=== PATIENT | female | born 1975 | race Two or more races ===

== ENCOUNTER 2020-07-03 11:25 | Outpatient (REF) | payer OTHER, SELFPAY ==
[2020-07-03 14:47] LABS: Free T4 (Free Thyroxine) 0.84 ng/dL (0.71-1.85); Thyroid Stimulating Hormone 0.04 uIU/mL (0.32-4.0); Vitamin D 25-OH Total 30.2 ng/mL (>30)
[2020-07-04 11:41] LABS: Triiodothyronine T3 Free 2.5 pg/mL (2.3-4.2)
== END 2020-07-03 11:26 | disposition home or self-care (01) ==
LOC: HO.HMGCLDS 11:25
PROVIDERS: PCP Internal Medicine; Visit Provider Internal Medicine
DX: E05.90 Thyrotoxicosis, unspecified without thyrotoxic crisis or storm (principal); E55.9 Vitamin D deficiency, unspecified
CPT/HCPCS: 82306; 84439; 84443; 84481

== ENCOUNTER → 2020-07-16 12:12 | Outpatient (BNVA) | payer OTHER, SELFPAY | PROVIDERS: PCP Internal Medicine; Referring Provider Internal Medicine; Visit Provider Internal Medicine | DX: Z76.89 Persons encountering health services in other specified circumstances (principal) ==

== ENCOUNTER → 2020-12-09 07:25 | Outpatient (BNVA) | payer OTHER, SELFPAY | PROVIDERS: PCP Internal Medicine; Visit Provider Internal Medicine ==

== ENCOUNTER 2020-12-23 08:04 | Outpatient (REF) | payer OTHER, SELFPAY ==
--- NOTE | ~2020-12-23 | US_ITS ---
EXAMINATION: US THYROID CLINICAL INFORMATION: Thyrotoxicosis with diffuse goiter without thyrotoxic crisis or storm. COMPARISON: None TECHNIQUE: Linear transducer grayscale and color Doppler examination with attention to the region of the thyroid. FINDINGS: SIZE: Measurements of the thyroid lobes and nodules are given in sagittal, anteroposterior and transverse dimensions respectively. Right Thyroid Lobe: 6.7 x 2.8 x 3.1 cm, volume 30.5 mL. Parenchyma: The gland echotexture is slightly heterogeneous. Thyroid vascularity is increased. Left Thyroid Lobe: 6.6 x 2 x 2.8 cm, volume 19.1 mL. Parenchyma: The gland echotexture is slightly heterogeneous. Thyroid vascularity is increased. Isthmus: 1.0 cm in maximum AP dimension. Estimated total number of nodules greater than or equal to 1 cm: 0. 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 Location: Right mid/inferior. Size: 0.4 x 0.2 x 0.3 cm, volume 0.01 mL. Nodule characteristics: Composition: Cystic(0). ACR TI-RADS total points: 0 ACR TI-RADS category: 1 NODES: No lymphadenopathy is seen in the tissue surrounding the thyroid gland. US/US thyroid IMPRESSION: Enlarged slightly heterogeneous hypervascular thyroid gland. Small solitary cystic right nodule. ACR TI-RADS RECOMMENDATION REFERENCE: Ultrasound-guided fine-needle aspiration, followup ultrasound, no further follow up. * TR1 (0 point) and TR 2 (2 points): No FNA or follow up * TR3 (3 points): FNA if more than or equal to 2.5 cm in maximum dimension, followup ultrasound in 1, 3 and 5 years if 1.5 to 2.4 cm in maximum dimension. * TR4 (4-6 points): FNA if more than or equal to 1.5 cm in maximum dimension, followup ultrasound in 1, 2, 3 and 5 years if 1 to 1.4 cm in maximum dimension. * TR5 (more than or equal to 7 points): FNA if more than or equal to 1 cm in maximum dimension, followup ultrasound every year for 5 years if 0.5 to 0.9 cm in maximum dimension. * TR3, TR4 or TR5 nodules that are below the size threshold for follow up receive no follow up.
[2020-12-23 11:08] LABS: Free T4 (Free Thyroxine) 0.94 ng/dL (0.71-1.85); Thyroid Stimulating Hormone 0.68 uIU/mL (0.32-4.0)
[2020-12-24 08:16] LABS: Triiodothyronine T3 Total 95 ng/dL (76-181)
[2020-12-24 09:07] LABS: Thyroglobulin Antibodies <1 IU/mL (< or = 1); Thyroid Peroxidase Antibodies 8 IU/mL (<9)
[2020-12-28 08:21] LABS: Thyrotropin Receptor Antibody 3.03 IU/L (<=2.00)
[2020-12-28 16:51] LABS: Thyroid Stimulating Immunoglob 319 % baseline (<140)
== END 2020-12-23 08:05 | disposition home or self-care (01) ==
LOC: HO.US 08:04
PROVIDERS: PCP Internal Medicine; Visit Provider Internal Medicine
DX: E05.00 Thyrotoxicosis with diffuse goiter without thyrotoxic crisis or storm (principal)
CPT/HCPCS: 36415; 76536; 83520; 84439; 84443; 84445; 84480; 86376; 86800

== ENCOUNTER → 2021-01-27 08:27 | Outpatient (BNVA) | payer OTHER, SELFPAY | PROVIDERS: PCP Internal Medicine; Visit Provider Internal Medicine ==

== ENCOUNTER 2021-02-10 07:20 | Outpatient (REF) | payer OTHER, SELFPAY ==
[2021-02-10 14:32] LABS: Free T4 (Free Thyroxine) 1.06 ng/dL (0.71-1.85); Vitamin D 25-OH Total 21.4 ng/mL (>30)
[2021-02-11 12:52] LABS: Triiodothyronine T3 Total 107 ng/dL (76-181)
== END 2021-02-10 07:21 | disposition home or self-care (01) ==
LOC: HO.LAB 07:20
PROVIDERS: PCP Internal Medicine; Visit Provider Internal Medicine
DX: E05.00 Thyrotoxicosis with diffuse goiter without thyrotoxic crisis or storm (principal); E55.9 Vitamin D deficiency, unspecified; E04.1 Nontoxic single thyroid nodule; H05.20 Unspecified exophthalmos; Z79.899 Other long term (current) drug therapy
CPT/HCPCS: 36415; 82306; 84439; 84443; 84480

== ENCOUNTER → 2021-04-07 09:58 | Outpatient (REF) | payer OTHER, SELFPAY ==
--- NOTE | ~2021-04-07 | NM_ITS ---
EXAMINATION: NM THYROID UPTAKE AND SCAN CLINICAL INFORMATION: Graves' disease, hyperthyroidism. COMPARISON: No previous radionuclide thyroid scan is available for comparison. Thyroid ultrasound dated 12/23/2020 is available for comparison. TECHNIQUE: Following the oral administration of 281 microcuries of I-123 sodium iodide, thyroid uptake was performed and expressed as a percentage of the administrated dose. Gamma scintillation camera images of the thyroid in the anterior and right and left anterior oblique views were obtained using a pinhole collimator following the administration of 10 mCi Tc-99m pertechnetate. FINDINGS: The uptake is 24.7% at 4 hours and 42.2% at 24 hours. (Normal radioiodine uptake at 24 hours: 10% to 30%) The radio pertechnetate thyroid scintigram shows the thyroid gland to be moderately enlarged, approximately 2-3 times normal in size. There is very homogeneous distribution of activity within the gland with no focal abnormalities present. A faint pyramidal lobe is visualized attaching to the upper pole of the left lobe. The trapping function is moderately increased diffusely. A single anterior radioiodine image obtained at the time of the 24-hour uptake is similar to the radio pertechnetate image. Compared to the thyroid ultrasound dated 12/23/2020, the size of the gland is similar. A small subcentimeter solitary cystic nodule in the right lobe on the ultrasound study is not visualized on this radionuclide scan, but this nodule is well below the resolution of this radionuclide technique. NM/NM thyroid w uptake IMPRESSION: Moderately enlarged thyroid gland with moderately elevated radioiodine uptake and moderately increased trapping function are most consistent with Graves' disease in the clinical setting of hyperthyroidism. No nodules are visualized.
== END ==
LOC: HO.NUCMED 09:58
PROVIDERS: Visit Provider Internal Medicine
DX: E05.90 Thyrotoxicosis, unspecified without thyrotoxic crisis or storm (principal)
CPT/HCPCS: 78014; A9512; A9516

== ENCOUNTER → 2021-04-22 11:06 | Outpatient (BNVA) | payer OTHER, SELFPAY | PROVIDERS: PCP Internal Medicine; Visit Provider Internal Medicine ==

== ENCOUNTER 2021-07-20 08:56 | Outpatient (REF) | payer OTHER, SELFPAY ==
[2021-07-20 11:42] LABS: Hematocrit 39.8 % (37.0-47.0); Hemoglobin 13.3 g/dl (12.0-16.0); Mean Corpuscular HGB Conc 33.4 g/dl (31.0-35.0); Mean Corpuscular Hemoglobin 27.9 pg (27.0-33.0); Mean Corpuscular Volume 83.4 fL (80.0-98.0); Platelet Count 252 X10*3/uL (160-400); Red Blood Count 4.77 X10*6/uL (4.20-5.50); Red Cell Distribution Width 12.2 % (11.0-16.0); White Blood Count 7.5 X10*3/uL (4.8-10.8)
[2021-07-20 11:51] LABS: Appearance Urine CLEAR; Color Urine YELLOW; Glucose Urine UA NEG (NEG); Leukocyte Esterase Urine NEG (NEG); Nitrite Urine NEG (NEG); Specific Gravity - Urine 1.025 (1.005-1.025); Urine Blood 2+ (NEG); Urine Ketones NEG (NEG); Urine Protein NEG (NEG-TRACE)
[2021-07-20 11:57] LABS: Alanine Aminotransferase 13 U/L (0-31); Albumin Level 4.1 g/dL (3.5-5.0); Alkaline Phosphatase 94 U/L (39-117); Anion Gap 11 (12-20); Aspartate Amino Transferase 14 U/L (5-31); Bilirubin Total 0.3 mg/dL (0.0-1.0); Blood Urea Nitrogen 15 mg/dL (9-16); Calcium 8.7 mg/dL (8.4-10.2); Carbon Dioxide 27 mmol/L (22-29); Chloride 105 mmol/L (96-108); Cholesterol 182 mg/dL; Estimated Glomerular Filt Rate > 60; Glucose Fasting 85 mg/dL (60-99); HDL Cholesterol 42 mg/dL; LDL Cholesterol Calculated 124 mg/dl; Potassium 3.9 mmol/L (3.3-5.1); Sodium 139 mmol/L (135-145); Total Protein 7.1 g/dL (6.5-8.0); Triglycerides 84 mg/dL
[2021-07-20 12:11] LABS: Free T4 (Free Thyroxine) 1.03 ng/dL (0.71-1.85); Vitamin D 25-OH Total 16.8 ng/mL (>30)
[2021-07-20 12:20] LABS: Thyroid Stimulating Hormone 0.21 uIU/mL (0.32-4.0)
[2021-07-20 12:26] LABS: Bacteria Urine 1+ /LPF; Squamous Epithelial Cell Urine 1+ /LPF; WBC Urine 0 /HPF (0-4)
[2021-07-21 05:37] LABS: Triiodothyronine T3 Total 113 ng/dL (76-181)
== END 2021-07-20 08:57 | disposition home or self-care (01) ==
LOC: HO.HMGCLDS 08:56
PROVIDERS: Absent Provider Internal Medicine; PCP Internal Medicine; Visit Provider Internal Medicine
DX: Z00.00 Encounter for general adult medical examination without abnormal findings (principal); E05.00 Thyrotoxicosis with diffuse goiter without thyrotoxic crisis or storm; E55.9 Vitamin D deficiency, unspecified
CPT/HCPCS: 36415; 80053; 80061; 81001; 82306; 84439; 84443; 84480; 85027

== ENCOUNTER → 2021-07-21 07:34 | Outpatient (BNVA) | payer OTHER, SELFPAY | PROVIDERS: PCP Internal Medicine; Visit Provider Internal Medicine ==

== ENCOUNTER 2021-09-01 10:16 | Outpatient (REF) | payer OTHER, SELFPAY ==
[2021-09-01 11:47] LABS: Appearance Urine HAZY; Color Urine YELLOW; Glucose Urine UA NEG (NEG); Leukocyte Esterase Urine NEG (NEG); Nitrite Urine NEG (NEG); PH 6.5 (5.0-8.0); Specific Gravity - Urine 1.015 (1.005-1.025); Urine Blood 3+ (NEG); Urine Ketones NEG (NEG); Urine Protein TRACE MG/DL (NEG-TRACE)
[2021-09-01 12:17] LABS: Alanine Aminotransferase 14 U/L (0-31); Albumin Level 4.2 g/dL (3.5-5.0); Alkaline Phosphatase 85 U/L (39-117); Anion Gap 12 (12-20); Aspartate Amino Transferase 14 U/L (5-31); Bacteria Urine 1+ /LPF; Bilirubin Total 0.4 mg/dL (0.0-1.0); Blood Urea Nitrogen 15 mg/dL (9-16); Calcium 9.2 mg/dL (8.4-10.2); Carbon Dioxide 28 mmol/L (22-29); Chloride 104 mmol/L (96-108); Estimated Glomerular Filt Rate > 60; Glucose Random 86 mg/dL (60-115); Phosphorus 2.8 mg/dL (2.7-4.5); Potassium 3.9 mmol/L (3.3-5.1); Renal Epithelial Cells Urine 1+ /LPF; Sodium 140 mmol/L (135-145); Squamous Epithelial Cell Urine 1+ /LPF; Total Protein 7.6 g/dL (6.5-8.0); WBC Urine 0-2 /HPF (0-4)
[2021-09-01 12:19] LABS: Thyroid Stimulating Hormone 0.01 uIU/mL (0.32-4.0); Vitamin D 25-OH Total 26.7 ng/mL (>30)
[2021-09-02 08:07] LABS: Triiodothyronine T3 Total 182 ng/dL (76-181)
[2021-09-02 14:16] LABS: Calcium (PTHI) 9.1 mg/dL (8.6-10.2); PTHI 56 pg/mL (14-64)
[2021-09-05 16:57] LABS: Thyrotropin Receptor Antibody 7.34 IU/L (<=2.00)
[2021-09-07 15:01] LABS: Thyroid Stimulating Immunoglob 198 % baseline (<140)
== END 2021-09-01 10:17 | disposition home or self-care (01) ==
LOC: HO.HMGCLDS 10:16
PROVIDERS: PCP Internal Medicine; Visit Provider Internal Medicine
DX: Z00.00 Encounter for general adult medical examination without abnormal findings (principal); E05.00 Thyrotoxicosis with diffuse goiter without thyrotoxic crisis or storm; E55.9 Vitamin D deficiency, unspecified
CPT/HCPCS: 36415; 80053; 81001; 82306; 83520; 83970; 84100; 84439; 84443; 84445; 84480

== ENCOUNTER → 2021-09-02 11:04 | Outpatient (BNVA) | payer OTHER, SELFPAY | PROVIDERS: PCP Internal Medicine; Visit Provider Internal Medicine ==

== ENCOUNTER → 2022-01-06 11:07 | Outpatient (BNVA) | payer OTHER, SELFPAY | PROVIDERS: PCP Internal Medicine; Visit Provider Internal Medicine | DX: Z13.89 Encounter for screening for other disorder (principal) ==

== ENCOUNTER 2022-01-10 08:00 | Outpatient (REF) | payer OTHER, SELFPAY ==
--- NOTE | ~2022-01-10 | CT_ITS ---
EXAMINATION: CT ABDOMEN AND PELVIS WITHOUT AND WITH CONTRAST CLINICAL INFORMATION: Hematuria. COMPARISON: None TECHNIQUE: Multidetector volumetric imaging was performed of the abdomen and pelvis before and after the IV administration of 85 mL of Omnipaque 300 intravenous contrast. Sagittal and coronal reformatted images were obtained on the technologist's workstation. This CT examination was performed using dose optimization techniques as appropriate, variously including the following: *Automated exposure control *Adjustment of mA and/or kV according to patient size (this includes techniques or standardized protocols for targeted exams where dose is matched to indication/reason for exam; i.e. extremities or head) *Use of iterative reconstruction technique DLP: 976 mGy-cm FINDINGS: LUNG BASES: The lung bases are clear. The heart size is normal. LIVER, GALLBLADDER, AND BILIARY TREE: The liver is normal in size, shape, and attenuation. There are small nonenhancing hypodense cysts throughout the right hepatic lobe. The largest cyst measures 1.8 cm segment 6. No intrahepatic ductal dilatation seen. The gallbladder is unremarkable with no evidence of radiopaque gallstones, gallbladder wall thickening, or obvious pericholecystic inflammatory changes. PANCREAS: Unremarkable. SPLEEN: Unremarkable. ADRENAL GLANDS: Unremarkable. KIDNEYS AND URETERS: There is a 5 mm nonobstructive radiopaque calculi lower pole calyx left kidney. No additional radiopaque calculi seen. Postcontrast there are symmetrical bilateral nephrograms with normal cortical thickness. Left kidney measures 12.2 cm in length and right kidney measures 11.1 cm. There is good opacification of bilateral kidney pelvises and ureters. No enhancing lesion or cyst is visualized. There is good opacification of bilateral kidney pelvises and ureters without any intraluminal filling defect or narrowing. BLADDER: The bladder is partially opacified from excreted urinary contrast and appears unremarkable. No bladder wall thickening seen. GASTROINTESTINAL TRACT: There is scattered stool, diverticula and gas seen throughout the colon without any significant diverticulosis, mural thickening or obstruction. Small shotty lymph nodes are seen in the right ileocecal junction. ABDOMINAL WALL: No significant hernia is appreciated. LYMPH NODES: Normal. VASCULAR: Unremarkable. PELVIC VISCERA: The uterus is anteverted with IUD well located within the endometrial canal. No adnexal mass or free fluid seen. OSSEOUS STRUCTURES: No lytic process seen. There is a sclerotic density left posterior L2 vertebra, question bone island. Mild degenerative changes bilateral SI joints are noted. CT/CT abdomen pelvis wo/w con IMPRESSION: Nonobstructive 4 mm radiopaque calculi lower pole left kidney without caliectasis or hydronephrosis. Otherwise CT with and without contrast is unremarkable. Nonenhancing right hepatic cyst. Fleischner guidelines were followed.
[2022-01-10] MEDS: iohexoL 300 MG/ML 100 ML INFUS..BTL 85 ML IV (09:31)
[2022-01-10 10:37] LABS: Free T4 (Free Thyroxine) 2.77 ng/dL (0.71-1.85); Thyroid Stimulating Hormone < 0.01 uIU/mL (0.32-4.0); Vitamin D 25-OH Total 26.4 ng/mL (>30)
[2022-01-11 07:55] LABS: Triiodothyronine T3 Total 391 ng/dL (76-181)
== END 2022-01-10 08:01 | disposition home or self-care (01) ==
LOC: HO.CT 08:00
PROVIDERS: Absent Provider Internal Medicine; PCP Internal Medicine; Visit Provider Internal Medicine
DX: R31.9 Hematuria, unspecified (principal); E05.00 Thyrotoxicosis with diffuse goiter without thyrotoxic crisis or storm; E55.9 Vitamin D deficiency, unspecified
CPT/HCPCS: 36415; 74178; 82306; 84439; 84443; 84480; Q9967

== ENCOUNTER 2022-02-04 09:54 | Outpatient (REF) | payer OTHER, SELFPAY ==
[2022-02-04 12:03] LABS: Free T4 (Free Thyroxine) 2.02 ng/dL (0.71-1.85)
[2022-02-06 03:41] LABS: Triiodothyronine T3 Total 230 ng/dL (76-181)
== END 2022-02-04 09:55 | disposition home or self-care (01) ==
LOC: HO.HMGCLDS 09:54
PROVIDERS: Visit Provider Internal Medicine
DX: E05.00 Thyrotoxicosis with diffuse goiter without thyrotoxic crisis or storm (principal)
CPT/HCPCS: 36415; 84439; 84480

== ENCOUNTER 2022-03-09 15:36 | Outpatient (REF) | payer OTHER, SELFPAY ==
[2022-03-09 17:03] LABS: Free T4 (Free Thyroxine) 2.18 ng/dL (0.71-1.85); Thyroid Stimulating Hormone < 0.01 uIU/mL (0.32-4.0)
[2022-03-09 17:05] LABS: Free T4 (Free Thyroxine) 1.76 ng/dL (0.71-1.85)
[2022-03-10 18:17] LABS: Triiodothyronine T3 Total 212 ng/dL (76-181)
== END 2022-03-09 15:37 | disposition home or self-care (01) ==
LOC: HO.LAB 15:36
PROVIDERS: PCP Internal Medicine; Visit Provider Internal Medicine
DX: E05.00 Thyrotoxicosis with diffuse goiter without thyrotoxic crisis or storm (principal); E55.9 Vitamin D deficiency, unspecified
CPT/HCPCS: 36415; 82306; 84439; 84443; 84480

== ENCOUNTER 2022-06-23 13:13 | Outpatient (REF) | payer BC, SELFPAY ==
[2022-06-23 17:26] LABS: Free T4 (Free Thyroxine) 0.92 ng/dL (0.71-1.85)
[2022-06-25 11:57] LABS: Triiodothyronine T3 Total 113 ng/dL (76-181)
== END 2022-06-23 13:14 | disposition home or self-care (01) ==
LOC: HO.HMGCLDS 13:13
PROVIDERS: PCP Internal Medicine; Visit Provider Internal Medicine
DX: E05.90 Thyrotoxicosis, unspecified without thyrotoxic crisis or storm (principal)
CPT/HCPCS: 36415; 84439; 84480

== ENCOUNTER 2022-08-15 13:31 | Outpatient (REF) | payer BC, SELFPAY ==
[2022-08-15 17:15] LABS: Free T4 (Free Thyroxine) 0.94 ng/dL (0.71-1.85)
[2022-08-17 03:59] LABS: Triiodothyronine T3 Total 120 ng/dL (76-181)
== END 2022-08-15 13:32 | disposition home or self-care (01) ==
LOC: HO.HMGCLDS 13:31
PROVIDERS: PCP Internal Medicine; Visit Provider Internal Medicine
DX: E05.00 Thyrotoxicosis with diffuse goiter without thyrotoxic crisis or storm (principal)
CPT/HCPCS: 36415; 84439; 84480

== ENCOUNTER → 2022-08-22 07:35 | Outpatient (BNVA) | payer BC, SELFPAY | PROVIDERS: PCP Internal Medicine; Visit Provider Internal Medicine | DX: Z13.89 Encounter for screening for other disorder (principal) ==

== ENCOUNTER 2022-08-22 08:06 | Outpatient (REF) | payer BC, SELFPAY ==
[2022-08-22 11:15] LABS: Free T4 (Free Thyroxine) 0.92 ng/dL (0.71-1.85); Thyroid Stimulating Hormone 1.23 uIU/mL (0.32-4.0); Vitamin D 25-OH Total 19.8 ng/mL (>30)
[2022-08-23 01:40] LABS: Triiodothyronine T3 Total 104 ng/dL (76-181)
== END 2022-08-22 08:07 | disposition home or self-care (01) ==
LOC: HO.10HDL 08:06
PROVIDERS: Visit Provider Internal Medicine
DX: E05.00 Thyrotoxicosis with diffuse goiter without thyrotoxic crisis or storm (principal); E55.9 Vitamin D deficiency, unspecified
CPT/HCPCS: 36415; 82306; 84439; 84443; 84480

== ENCOUNTER 2022-10-03 08:45 | Outpatient (REF) | payer BC, SELFPAY ==
[2022-10-03 11:22] LABS: Free T4 (Free Thyroxine) 0.84 ng/dL (0.71-1.85); Thyroid Stimulating Hormone 3.42 uIU/mL (0.32-4.0)
[2022-10-04 13:23] LABS: Triiodothyronine T3 Total 100 ng/dL (76-181)
== END 2022-10-03 08:46 | disposition home or self-care (01) ==
LOC: HO.10HDL 08:45
PROVIDERS: Visit Provider Internal Medicine
DX: E05.00 Thyrotoxicosis with diffuse goiter without thyrotoxic crisis or storm (principal)
CPT/HCPCS: 36415; 84439; 84443; 84480

== ENCOUNTER → 2022-10-05 07:56 | Outpatient (BNVA) | payer BC, SELFPAY | PROVIDERS: PCP Internal Medicine; Visit Provider Internal Medicine | DX: Z13.89 Encounter for screening for other disorder (principal) ==

== ENCOUNTER 2022-10-05 10:13 | Outpatient (REF) | payer BC, SELFPAY ==
[2022-10-05 11:30] LABS: Basophils Percent Auto 0.2 % (0-2); Hematocrit 42.3 % (37.0-47.0); Imm Gran Abs Auto 0.02 X10*3/uL (0.00-0.03); Imm Gran Pct Auto 0.3 % (0.0-0.4); Lymphocytes Percent Auto 30.7 % (20-40); MANUAL DIFF FLAG SCAN; Mean Corpuscular HGB Conc 33.1 g/dl (31.0-35.0); Mean Corpuscular Hemoglobin 28.3 pg (27.0-33.0); Mean Corpuscular Volume 85.5 fL (80.0-98.0); Monocytes Absolute Auto 0.5 X10*3/uL (0.1-1.2); Monocytes Percent Auto 7.1 % (2-11); Neutrophils Percent Auto 61.7 % (45-73); PLT CLUMP 1; Red Blood Count 4.95 X10*6/uL (4.20-5.50); Red Cell Distribution Width 13.3 % (11.0-16.0); SCAN SMEAR FLAG 1
[2022-10-05 11:49] LABS: Platelet Count 227 X10*3/uL (160-400); SLIDE REVIEW VERIFIED; White Blood Count 6.4 X10*3/uL (4.8-10.8)
[2022-10-05 12:35] LABS: Alanine Aminotransferase 26 U/L (0-31); Albumin Level 4.2 g/dL (3.5-5.0); Alkaline Phosphatase 108 U/L (39-117); Anion Gap 14 (12-20); Aspartate Amino Transferase 23 U/L (5-31); Bilirubin Total 0.8 mg/dL (0.0-1.0); Blood Urea Nitrogen 12 mg/dL (9-16); Calcium 8.8 mg/dL (8.4-10.2); Carbon Dioxide 25 mmol/L (22-29); Chloride 106 mmol/L (96-108); Cholesterol 223 mg/dL; Estimated Glomerular Filt Rate > 60; Glucose Fasting 76 mg/dL (60-99); HDL Cholesterol 53 mg/dL; LDL Cholesterol Calculated 154 mg/dl; Potassium 3.9 mmol/L (3.3-5.1); Sodium 141 mmol/L (135-145); Total Protein 7.4 g/dL (6.5-8.0); Triglycerides 81 mg/dL
== END 2022-10-05 10:14 | disposition home or self-care (01) ==
LOC: HO.HMGCLDS 10:13
PROVIDERS: Visit Provider Internal Medicine
DX: Z00.00 Encounter for general adult medical examination without abnormal findings (principal)
CPT/HCPCS: 36415; 80053; 80061; 85025

== ENCOUNTER 2022-12-20 09:04 | Outpatient (REF) | payer BC, SELFPAY ==
[2022-12-20 11:06] LABS: Free T4 (Free Thyroxine) 0.55 ng/dL (0.71-1.85); Thyroid Stimulating Hormone 21.91 uIU/mL (0.32-4.0)
[2022-12-22 00:53] LABS: Triiodothyronine T3 Total 86 ng/dL (76-181)
== END 2022-12-20 09:05 | disposition home or self-care (01) ==
LOC: HO.10HDL 09:04
PROVIDERS: Visit Provider Internal Medicine
DX: E05.00 Thyrotoxicosis with diffuse goiter without thyrotoxic crisis or storm (principal); E55.9 Vitamin D deficiency, unspecified
CPT/HCPCS: 36415; 82306; 84439; 84443; 84480

== ENCOUNTER 2023-03-06 07:36 | Outpatient (AMB) | payer BC, SELFPAY ==
--- NOTE | 2023-03-06 07:37 | A.OFFVIS_ITS ---
Intake Intake Visit Reasons: F/Up after surgery Allergies No Known Allergies Allergy (Verified 03/06/23 07:45) Medication List - Last Reconciled 03/06/23 by Shanika Reagan DO cholecalciferol (vitamin D3) 50 mcg PO DAILY 30 days levothyroxine 150 mcg PO QAM HPI HPI Comments History of Present Illness Details 48 YO F with PMHx Grave's disease who is seen in F/U for Grave's disease. Reports she was diagnosed with Grave's disease in [address] Parker at [facility]. She was started on Methimazole 20 mg PO daily. She was able to achieve remission, and then remained off that for approximately 1.5 years at which time her hyperthyroidism returned. She had an uptake and scan that was consistent with Grave's disease with uptake 42.4% at 24 hours, with homogenous distribution. She was resumed on methimazole and was using 5 mg PO daily, which was titrated upwards to 10 mg PO TID. She was then referred for a total thyroidectomy and underwent this with Dr. Ndiaye 01/09/2023. Surgical path was benign. Postoperatively she was started on levothyroxine 150 mcg daily and takes this correctly. She has not yet repeated labs. She also has Thryoid eye disease and did receive 8 injections of Tapazza, which completed in April 2020. She sees Dr. Josh Cheatham from Ophthalmology. Referral has been sent to Dr. Huerta. Denies any compressive symptoms currently. She reports feeling well with no complaints. Denies any paresthesias. Thyroid US: 12/23/2020 Right Thyroid Lobe: 6.7 x 2.8 x 3.1 cm, volume 30.5 mL. Parenchyma: The gland echotexture is slightly heterogeneous. Thyroid vascularity is increased. Left Thyroid Lobe: 6.6 x 2 x 2.8 cm, volume 19.1 mL. Parenchyma: The gland echotexture is slightly heterogeneous. Thyroid vascularity is increased. Isthmus: 1.0 cm in maximum AP dimension. Estimated total number of nodules greater than or equal to 1 cm: 0. 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 Location: Right mid/inferior. Size: 0.4 x 0.2 x 0.3 cm, volume 0.01 mL. Nodule characteristics: Composition: Cystic(0). ACR TI-RADS total points: 0 ACR TI-RADS category: 1 NODES: No lymphadenopathy is seen in the tissue surrounding the thyroid gland. IMPRESSION: Enlarged slightly heterogeneous hypervascular thyroid gland. Small solitary cystic right nodule. Thyroid Uptake and Scan 04/07/2021: FINDINGS: The uptake is 24.7% at 4 hours and 42.2% at 24 hours. (Normal radioiodine uptake at 24 hours: 10% to 30%) The radio pertechnetate thyroid scintigram shows the thyroid gland to be moderately enlarged, approximately 2-3 times normal in size. There is very homogeneous distribution of activity within the gland with no focal abnormalities present. A faint pyramidal lobe is visualized attaching to the upper pole of the left lobe. The trapping function is moderately increased diffusely. A single anterior radioiodine image obtained at the time of the 24-hour uptake is similar to the radio pertechnetate image. Compared to the thyroid ultrasound dated 12/23/2020, the size of the gland is similar. A small subcentimeter solitary cystic nodule in the right lobe on the ultrasound study is not visualized on this radionuclide scan, but this nodule is well below the resolution of this radionuclide technique. IMPRESSION: Moderately enlarged thyroid gland with moderately elevated radioiodine uptake and moderately increased trapping function are most consistent with Graves' disease in the clinical setting of hyperthyroidism. No nodules are visualized. Labs: Laboratory Tests 08/22/22 10/03/22 10/03/22 08:10 08:50 08:50 25-OH Vitamin D To lashay 19.8 TSH 3.42 Free T4 0.84 Total T3 100 PFSH Medical History Abnormal mammogram of left breast Annual physical exam Anxiety and depression Exophthalmos Graves' disease Hematuria Hyperthyroidism Nephrolithiasis Normal Pap smear Postoperative hypothyroidism Thyroid eye disease Thyroid nodule Vitamin D deficiency Surgical History No history of previous surgery Family History Father Family history of diabetes mellitus Mother Depression Family history of diabetes mellitus Brother Diabetes mellitus Other Mental health disorder Social History Housing: House Alcohol intake: current Alcohol intake frequency: holidays/special occasions only Patient Tobacco Use Status: Never used Tobacco e-Cigarette/Vaping Use: Never Used Current occupational status: employed Cognitive needs: No Hearing needs: No Vision needs: Yes Assessment & Plan Assessment & Plan (1) Postoperative hypothyroidism: Code(s): E89.0 - Postprocedural hypothyroidism Plan: Patient underwent a total thyroidectomy for Grave's disease 01/09/2023. Official surgical path was benign. She remains on levothyroxine 150 mcg PO daily. Will repeat labs now to assess for euthyroidism. If there are any abnormalities I will call her with adjustments. She will then F/U in 3 months time. All questions were answered. She is in agreement with this plan of care. I spent 20 minutes in reviewing the record, seeing the patient and documenting in the medical record, including 5 minutes on the phone with the Patient. (2) Vitamin D deficiency: Code(s): E55.9 - Vitamin D deficiency, unspecified Plan: Will check Vitamin D as well as calcium and PTH levels now. Orders: Orders Albumin Level Today E55.9 - Vitamin D deficiency, unspecified Calcium Today E55.9 - Vitamin D deficiency, unspecified PTHI Today E55.9 - Vitamin D deficiency, unspecified Free T4 (Free Thyroxine) Today E89.0 - Postprocedural hypothyroidism Thyroid Stimulating Hormone Today E89.0 - Postprocedural hypothyroidism Vitamin D 25-OH Total Today E55.9 - Vitamin D deficiency, unspecified Telehealth Telehealth Location of provider rendering services: practice address Location of patient: address on file Patient Identification confirmed using: Name, : Yes Telehealth method: voice only Patient verbally consented to treatment: Yes Patient verbally consented to billing insurance company: Yes Patient informed of any privacy concerns related to visit: Yes Coding Level of Care Code Tele Est Pt Level 3 (83125) Diagnoses Postoperative hypothyroidism E89.0 Vitamin D deficiency E55.9
== END 2023-03-06 07:52 | disposition home or self-care (01) ==
LOC: HO.ENCR 07:37
PROVIDERS: PCP Internal Medicine; Visit Provider Internal Medicine
DX: E89.0 Postprocedural hypothyroidism (principal); E55.9 Vitamin D deficiency, unspecified
CPT/HCPCS: 99441

== ENCOUNTER → 2023-03-06 07:36 | Outpatient (BNVA) | payer BC, SELFPAY | PROVIDERS: PCP Internal Medicine; Visit Provider Internal Medicine ==

== ENCOUNTER 2023-03-07 08:13 | Outpatient (REF) | payer BC, SELFPAY ==
[2023-03-07 11:27] LABS: Albumin Level 4.1 g/dL (3.5-5.0); Calcium 9.5 mg/dL (8.4-10.2)
[2023-03-07 11:28] LABS: Free T4 (Free Thyroxine) 1.38 ng/dL (0.71-1.85); Thyroid Stimulating Hormone 0.03 uIU/mL (0.32-4.0)
[2023-03-07 11:49] LABS: Free T4 (Free Thyroxine) 1.41 ng/dL (0.71-1.85); Thyroid Stimulating Hormone 0.03 uIU/mL (0.32-4.0); Vitamin D 25-OH Total 32.9 ng/mL (>30)
[2023-03-08 03:59] LABS: Triiodothyronine T3 Total 128 ng/dL (76-181)
[2023-03-08 19:17] LABS: Calcium (PTHI) 9.3 mg/dL (8.6-10.4); PTHI 56 pg/mL (16-77)
== END 2023-03-07 08:14 | disposition home or self-care (01) ==
LOC: HO.10HDL 08:13
PROVIDERS: Visit Provider Internal Medicine
DX: E89.0 Postprocedural hypothyroidism (principal); E05.00 Thyrotoxicosis with diffuse goiter without thyrotoxic crisis or storm; E55.9 Vitamin D deficiency, unspecified
CPT/HCPCS: 36415; 82040; 82306; 82310; 83970; 84439; 84443; 84480

== ENCOUNTER 2023-07-05 09:58 | Outpatient (AMB) | payer BC, SELFPAY ==
--- NOTE | 2023-07-05 10:00 | A.OFFVIS_ITS ---
Intake Vital Signs 07/05/23 10:01 Height 5 ft 4 in Weight 215 lb 9.793 oz BMI 37.0 BP 126/72 Blood Pressure Location Lt brachial Position Sitting Pulse 65 Pulse Source Pulse Oximeter Intake Visit Reasons: F/U Grave's Disease-LVM Intake Note: Patient present today for follow up to Grave's disease. Director Of Human Resources Required: No Accompanied by: Self / Same As Patient Allergies No Known Allergies Allergy (Verified 07/05/23 10:07) HPI HPI Comments History of Present Illness Details 48 YO F with PMHx Grave's disease who is seen in F/U for Grave's disease. The patient last saw Dr. Mckenzie 03/06/2023 Reports she was diagnosed with Grave's disease in [address] Parker at [facility]. She was started on Methimazole 20 mg PO daily. She was able to achieve rem ission, and then remained off that for approximately 1.5 years at which time her hyperthyroidism returned. She had an uptake and scan that was consistent with Grave's disease with uptake 42.4% at 24 hours, with homogenous distribution. She was resumed on methimazole and was using 5 mg PO daily, which was titrated upwards to 10 mg PO TID. She was then referred for a total thyroidectomy and underwent this with Dr. Ndiaye 01/09/2023. Surgical path was benign. Postoperatively she was started on levothyroxine 137 mcg daily and takes this correctly. She has not yet repeated labs. She also has Thryoid eye disease and did receive 8 injections of Tapazza, which completed in April 2020. She sees Dr. Josh Cheatham from Ophthalmology. Referral has been sent to Dr. Huerta. Denies any compressive symptoms currently. She reports feeling well with no complaints. Denies any paresthesias. Thyroid US: 12/23/2020 Right Thyroid Lobe: 6.7 x 2.8 x 3.1 cm, volume 30.5 mL. Parenchyma: The gland echotexture is slightly heterogeneous. Thyroid vascularity is increased. Left Thyroid Lobe: 6.6 x 2 x 2.8 cm, volume 19.1 mL. Parenchyma: The gland echotexture is slightly heterogeneous. Thyroid vascularity is increased. Isthmus: 1.0 cm in maximum AP dimension. Estimated total number of nodules greater than or equal to 1 cm: 0. 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 Location: Right mid/inferior. Size: 0.4 x 0.2 x 0.3 cm, volume 0.01 mL. Nodule characteristics: Composition: Cystic(0). ACR TI-RADS total points: 0 ACR TI-RADS category: 1 NODES: No lymphadenopathy is seen in the tissue surrounding the thyroid gland. IMPRESSION: Enlarged slightly heterogeneous hypervascular thyroid gland. Small solitary cystic right nodule. Thyroid Uptake and Scan 04/07/2021: FINDINGS: The uptake is 24.7% at 4 hours and 42.2% at 24 hours. (Normal radioiodine uptake at 24 hours: 10% to 30%) The radio pertechnetate thyroid scintigram shows the thyroid gland to be moderately enlarged, approximately 2-3 times normal in size. There is very homogeneous distribution of activity within the gland with no focal abnormalities present. A faint pyramidal lobe is visualized attaching to the upper pole of the left lobe. The trapping function is moderately increased diffusely. A single anterior radioiodine image obtained at the time of the 24-hour uptake is similar to the radio pertechnetate image. Compared to the thyroid ultrasound dated 12/23/2020, the size of the gland is similar. A small subcentimeter solitary cystic nodule in the right lobe on the ultrasound study is not visualized on this radionuclide scan, but this nodule is well below the resolution of this radionuclide technique. IMPRESSION: Moderately enlarged thyroid gland with moderately elevated radioiodine uptake and moderately increased trapping function are most consistent with Graves' disease in the clinical setting of hyperthyroidism. No nodules are visualized. Labs: Laboratory Tests 08/22/22 10/03/22 10/03/22 08:10 08:50 08:50 25-OH Vitamin D To lashay 19.8 TSH 3.42 Free T4 0.84 Total T3 100 Had a course of Tepezza in 2019 [facility] Medical History Postoperative hypothyroidism Thyroid eye disease Hematuria Thyroid nodule Annual physical exam Normal Pap smear Vitamin D deficiency Exophthalmos Hyperthyroidism Graves' disease Anxiety and depression Nephrolithiasis Abnormal mammogram of left breast Surgical History No history of previous surgery Family History Father Family history of diabetes mellitus Mother Depression Family history of diabetes mellitus Brother Diabetes mellitus Other Mental health disorder Social History Housing: House Alcohol intake: current Alcohol intake frequency: holidays/special occasions only Patient Tobacco Use Status: Never used Tobacco e-Cigarette/Vaping Use: Never Used Current occupational status: employed Cognitive needs: No Hearing needs: No Vision needs: Yes Physical Exam Vital Signs: Last Vital Signs Pulse 65 07/05/23 10:01 BP 126/72 07/05/23 10:01 BMI result Body Mass Index 37.0 Const Other: Healed scar status post thyroidectomy. There is minimum proptosis bilaterally Assessment & Plan Assessment & Plan (1) Postoperative hypothyroidism: Code(s): E89.0 - Postprocedural hypothyroidism Plan: This is a 48-year-old female with history of Graves disease status post total thyroidectomy with post-operative hypothyroidism. Patient is currently on 137 mcg levothyroxine with dose adjusted several months ago. Plan is check TSH and free T4 and adjust levothyroxine accordingly. Depending on above, may switch from generic levothyroxine to branded Synthroid. Orders: Orders Free T4 (Free Thyroxine) Today E89.0 - Postprocedural hypothyroidism Thyroid Stimulating Hormone Today E89.0 - Postprocedural hypothyroidism Coding Level of Care Code Est Pt Level 3 (90472) Diagnoses Postoperative hypothyroidism E89.0
[2023-07-05 10:01] VITALS: BP 126/72; PULSE 65; BMI 37.0
== END 2023-07-05 10:39 | disposition home or self-care (01) ==
PROVIDERS: PCP Internal Medicine; Visit Provider Internal Medicine Endocrinology, Diabetes & Metabolism
DX: E89.0 Postprocedural hypothyroidism (principal)
CPT/HCPCS: 99213

== ENCOUNTER → 2023-07-05 09:58 | Outpatient (BNVA) | payer BC, SELFPAY | PROVIDERS: PCP Internal Medicine; Visit Provider Internal Medicine Endocrinology, Diabetes & Metabolism ==

== ENCOUNTER 2023-07-05 11:03 | Outpatient (REF) | payer BC, SELFPAY ==
[2023-07-05 14:10] LABS: Thyroid Stimulating Hormone 1.05 uIU/mL (0.32-4.0)
== END 2023-07-05 11:04 | disposition home or self-care (01) ==
LOC: HO.10HDL 11:03
PROVIDERS: Visit Provider Internal Medicine Endocrinology, Diabetes & Metabolism
DX: E89.0 Postprocedural hypothyroidism (principal)
CPT/HCPCS: 36415; 84439; 84443

== ENCOUNTER 2023-11-22 11:39 | Outpatient (AMB) | payer BC, SELFPAY ==
[2023-11-22 11:47] VITALS: BP 118/78; PULSE 87; O2SAT 97; BMI 38.4
--- NOTE | 2023-11-22 11:47 | A.OFFPC_ITS ---
Vital Signs 11/22/23 11:47 Height 5 ft 4 in Weight 224 lb BMI 38.4 BP 118/78 Blood Pressure Location Lt brachial Position Sitting Pulse 87 Pulse Source Pulse Oximeter Pulse Oximetry (%) 97 Oxygen Delivery Method Room Air Intake Visit Reasons: Annual PE-10/10 Cx by office, R/S Intake Note: Pt is here today for PE. Allergies No Known Allergies Allergy (Verified 11/22/23 11:49) Medication List - Last Reconciled 11/22/23 by Bhavya Gill MD Synthroid (levothyroxine) 137 mcg PO DAILY NS Tobacco use date assessed: 11/22/23 Dental Screening Dental Screen Date: 11/22/23 Did you have a dental visit in the last 12 months?: Yes Did you have a dental problem in the last 6 months where you did not have access to dental care?: No Was dental information given to patient?: Patient has dentist HPI Annual PE-10/10 Cx by office, R/S HPI Details Pt presents for PE. [facility] Medical History (Updated 11/22/23 @ 12:33 by Bhavya Gill MD) Postoperative hypothyroidism Thyroid eye disease Hematuria Thyroid nodule Annual physical exam Normal Pap smear Vitamin D deficiency Exophthalmos Hyperthyroidism Graves' disease Anxiety and depression Nephrolithiasis Abnormal mammogram of left breast Surgical History History of thyroid surgery No history of previous surgery Family History Father Family history of diabetes mellitus Mother Depression Family history of diabetes mellitus Brother Diabetes mellitus Other Mental health disorder Social History Housing: House Alcohol intake: current Alcohol intake frequency: holidays/special occasions only Patient Tobacco Use Status: Never used Tobacco e-Cigarette/Vaping Use: Never Used service: No Current occupational status: employed Cognitive needs: No Hearing needs: No Vision needs: Yes Questionnaire PHQ-9 Over the last 2 weeks, how often have you been bothered by any of the following problems? 1. Little interest or pleasure in doing things: not at all 2. Feeling down, depressed, or hopeless: not at all 3. Trouble falling or staying asleep, or sleeping too much: nearly every day 4. Feeling tired or having little energy: more than half the days 5. Poor appetite or overeating: not at all 6. Feeling bad about yourself - or that you are a failure or have let yourself or your family down: not at all 7. Trouble concentrating on things, such as reading the newspaper or watching television: not at all 8. Moving or speaking so slowly that other people could have noticed. Or the opposite - being so fidgety or restless that you have been moving around a lot more than usual: not at all 9. Thoughts that you would be better off or of hurting yourself in some way: not at all Total score: 5 Depression Screening Interpretation: Negative Depression Screening Done: Yes Source: Developed by Drs. Naldo Lackey, Sakshi Mayer, Kurtis Muniz and colleagues, with an educational butch from [employer]. Thrive Questionnaire Date Thrive assessed: 11/22/23 I am a: Patient What is your living situation today?: I have a steady place to live Within the past 12 months, did the food you bought not last and you didn't have the money to get more?: Never true Within the past 12 months, did you worry whether your food would run out before you got money to buy more?: Never true Do you have trouble paying for medicines?: No Do you have trouble getting transportation to medical appointments?: No Do you have trouble paying your heating and electricity bill?: No Do you have trouble taking care of your child, family member or friend?: No Do you have trouble with day-to-day activities such as bathing, preparing meals, shopping, managing finances, etc.?: No Are you currently unemployed and looking for a job?: No Are you interested in more education?: No Please select the resources that you would like help with: None THRIVE Score: 0 AUDIT C Alcohol Use Questionnaire (AUDIT-C) 1. How often do you have a drink containing alcohol?: Monthly or less 2. How many drinks containing alcohol do you have on a typical day when you are drinking?: 1 or 2 3. How often do you have six or more drinks on one occasion?: Never Total Score: 1 FRANCY-7 AMB Questionnaire FRANCY-7 Date FRANCY - 7 assessed: 11/22/23 Feeling nervous, anxious, or on edge: 0 = Not at all Not being able to stop or control worryin = Not at all Worrying too much about different things: 0 = Not at all Trouble relaxin = Not at all Being so restless that it is hard to sit still: 0 = Not at all Becoming easily annoyed or irritable: 0 = Not at all Feeling afraid as if something awful might happen: 0 = Not at all Total FRANCY-7 score (0-4 normal; 5-9 mild; 10-14 moderate; 15-21 severe): 0 Source: Developed by Drs. Naldo Lackey, Sakshi Mayer, Kurtis Muniz and colleagues, with an educational butch from [employer]. Review of Systems Const All systems reviewed & are unremarkable except as noted in HPI and below Reports no additional complaints Eyes Reports no additional complaints ENT Reports no additional complaints Card Reports no additional complaints Resp Reports no additional complaints GI Reports no additional complaints Reports no additional complaints Physical exam (Primary Care) Vital Signs: Last Vital Signs Pulse 87 11/22/23 11:47 BP 118/78 11/22/23 11:47 Pulse Ox 97 11/22/23 11:47 Oxygen Delivery Method Room Air 11/22/23 11:47 BMI result Body Mass Index 38.4 Tobacco/Smoking Status: Tobacco use Status Tobacco use date assessed 11/22/23 11/22/23 11:52 Patient Tobacco Use Status Never used Tobacco 11/22/23 11:52 e-Cigarette/Vaping Use Never Used 11/22/23 11:47 PHQ-9: PHQ-9 Score PHQ-9: Total score 5 11/22/23 11:53 Depression Screening Interpretation: Negative Thrive Assessment: Date of Thrive Assessment Date Thrive assessed 11/22/23 11/22/23 11:53 Const General: no acute distress HENMT Head: Yes normal to inspection General nose exam: Normal external nose present Face and sinus: Yes normal facial exam Throat: Yes posterior oropharynx normal Eyes General: appearance normal, both eyes and all related structures Neck Neck: Yes no lymphadenopathy and Yes supple Resp Effort & Inspection: normal respiratory effort Auscultation: clear to auscultation bilaterally Cardio Rhythm: regular rhythm Heart sounds: S1 normal heart sound present and S2 normal heart sound present GI Inspection: Yes normal to inspection Palpation (GI): Soft to palpation Percussion: Yes normal to percussion Auscultation: normal bowel sounds Assessment and Plan Assessment & Plan (1) Annual physical exam: Code(s): Z00.00 - Encounter for general adult medical examination without abnormal findings Plan: well-balanced diet regular physical activity weight loss discussed with the patient. She will return for fasting blood work. Patient is up-to-date with the mammogram Pap smear by gum puller and will be referred to GI Dr. Alanis for colonoscopy (2) Postoperative hypothyroidism: Code(s): E89.0 - Postprocedural hypothyroidism Plan: continue Synthroid follow-up with endocrinology (3) Hx of screening mammography: Comment: [facility] Code(s): Z92.89 - Personal history of other medical treatment Orders: Orders Lipid Panel Today E89.0 - Postprocedural hypothyroidism, Z00.00 - Encounter for general adult medical examination without abnormal findings Comprehensive [place]. Panel Fast Today E89.0 - Postprocedural hypothyroidism, Z00.00 - Encounter for general adult medical examination without abnormal findings Complete Blood Count Auto Diff Today E89.0 - Postprocedural hypothyroidism, Z00.00 - Encounter for general adult medical examination without abnormal findings Referrals Gastroenterology Referral Z00.00 - Encounter for general adult medical examination without abnormal findings Coding Level of Care Code Est Pt Prev Care 40-64y(45831) Diagnoses Annual physical exam Z00.00 Postoperative hypothyroidism E89.0 Hx of screening mammography Z92.89
== END 2023-11-22 12:42 | disposition home or self-care (01) ==
LOC: HO.HMGC 11:39
PROVIDERS: PCP Internal Medicine; Visit Provider Internal Medicine
DX: Z00.00 Encounter for general adult medical examination without abnormal findings (principal); E89.0 Postprocedural hypothyroidism; Z92.89 Personal history of other medical treatment
CPT/HCPCS: 99396

== ENCOUNTER 2024-01-03 08:36 | Outpatient (AMB) | payer BC, SELFPAY ==
--- NOTE | 2024-01-03 08:40 | A.OFFVIS_ITS ---
Vital Signs 01/03/24 08:41 Height 5 ft 4 in Weight 225 lb 4.999 oz BMI 38.7 BP 126/78 Blood Pressure Location Lt brachial Position Sitting Pulse 81 Pulse Source Pulse Oximeter Intake Visit Reasons: F/U Grave's Disease Intake Note: Patient present today for Grave's Disease follow up visit. 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 Reports she was diagnosed with Grave's disease in [address] Parker at [facility]. She was started on Methimazole 20 mg PO daily. She was able to achieve remission, and then remained off that for approximately 1.5 years at which time her hyperthyroidism returned. She had an uptake and scan that was consistent with Grave's disease with uptake 42.4% at 24 hours, with homogenous distribution. She was resumed on methimazole and was using 5 mg PO daily, which was titrated upwards to 10 mg PO TID. She was then referred for a total thyroidectomy and underwent this with Dr. Ndiaye 01/09/2023. Surgical path was benign. Postoperatively she was started on levothyroxine 137 mcg daily and takes this correctly. She has not yet repeated labs. She also has Thryoid eye disease and did receive 8 injections of Tapazza, which completed in April 2020. She sees Dr. Josh Cheatham from Ophthalmology. Referral has been sent to Dr. Huerta. Denies any compressive symptoms currently. She reports feeling well with no complaints. Denies any paresthesias. Thyroid US: 12/23/2020 Right Thyroid Lobe: 6.7 x 2.8 x 3.1 cm, volume 30.5 mL. Parenchyma: The gland echotexture is slightly heterogeneous. Thyroid vascularity is increased. Left Thyroid Lobe: 6.6 x 2 x 2.8 cm, volume 19.1 mL. Parenchyma: The gland echotexture is slightly heterogeneous. Thyroid vascularity is increased. Isthmus: 1.0 cm in maximum AP dimension. Estimated total number of nodules greater than or equal to 1 cm: 0. Community Health Consultant nodules are described as follows: 1. Location: Right mid/inferior. Size: 0.4 x 0.2 x 0.3 cm, volume 0.01 mL. Nodule characteristics: Composition: Cystic(0). ACR TI-RADS total points: 0 ACR TI-RADS category: 1 NODES: No lymphadenopathy is seen in the tissue surrounding the thyroid gland. IMPRESSION: Enlarged slightly heterogeneous hypervascular thyroid gland. Small solitary cystic right nodule. Thyroid Uptake and Scan 04/07/2021: FINDINGS: The uptake is 24.7% at 4 hours and 42.2% at 24 hours. (Normal radioiodine uptake at 24 hours: 10% to 30%) The radio pertechnetate thyroid scintigram shows the thyroid gland to be moderately enlarged, approximately 2-3 times normal in size. There is very homogeneous distribution of activity within the gland with no focal abnormalities present. A faint pyramidal lobe is visualized attaching to the upper pole of the left lobe. The trapping function is moderately increased diffusely. A single anterior radioiodine image obtained at the time of the 24-hour uptake is similar to the radio pertechnetate image. Compared to the thyroid ultrasound dated 12/23/2020, the size of the gland is similar. A small subcentimeter solitary cystic nodule in the right lobe on the ultrasound study is not visualized on this radionuclide scan, but this nodule is well below the resolution of this radionuclide technique. IMPRESSION: Moderately enlarged thyroid gland with moderately elevated radioiodine uptake and moderately increased trapping function are most consistent with Graves' disease in the clinical setting of hyperthyroidism. No nodules are visualized. Labs: Laboratory Tests 08/22/22 10/03/22 10/03/22 08:10 08:50 08:50 25-OH Vitamin D Total 19.8 TSH 3.42 Free T4 0.84 Total T3 100 Had a course of Tepezza in 2019 [facility] Medical History Postoperative hypothyroidism Thyroid eye disease Hematuria Thyroid nodule Annual physical exam Normal Pap smear Vitamin D deficiency Exophthalmos Hyperthyroidism Graves' disease Anxiety and depression Nephrolithiasis Abnormal mammogram of left breast Surgical History History of thyroid surgery No history of previous surgery Family History Father Family history of diabetes mellitus Mother Depression Family history of diabetes mellitus Brother Diabetes mellitus Other Mental health disorder Social History Housing: House Alcohol intake: current Alcohol intake frequency: holidays/special occasions only Patient Tobacco Use Status: Never used Tobacco e-Cigarette/Vaping Use: Never Used service: No Current occupational status: employed Cognitive needs: No Hearing needs: No Vision needs: Yes Physical Exam Const Other: Healed scar status post thyroidectomy. There is minimum proptosis bilaterally Assessment & Plan Assessment & Plan (1) Postoperative hypothyroidism: Code(s): E89.0 - Postprocedural hypothyroidism Category: Medical Plan: This is a 48-year-old female with history of Graves disease status post total thyroidectomy with post-operative hypothyroidism. Patient is currently on 137 mcg Synthroid . She appears to be clinically euthyroid Plan is check TSH and free T4 . If the above is normal, patient returned to the care of her primary care provider returned back to endocrinology as needed Orders: Orders Free T4 (Free Thyroxine) Today E89.0 - Postprocedural hypothyroidism Thyroid Stimulating Hormone Today E89.0 - Postprocedural hypothyroidism Coding Level of Care Code Est Pt Level 3 (10000) Diagnoses Postoperative hypothyroidism E89.0
[2024-01-03 08:41] VITALS: BP 126/78; PULSE 81; BMI 38.7
== END 2024-01-03 10:31 | disposition home or self-care (01) ==
PROVIDERS: PCP Internal Medicine; Visit Provider Internal Medicine Endocrinology, Diabetes & Metabolism
DX: E89.0 Postprocedural hypothyroidism (principal)
CPT/HCPCS: 99213

== ENCOUNTER → 2024-01-03 08:36 | Outpatient (BNVA) | payer BC, SELFPAY | PROVIDERS: PCP Internal Medicine; Visit Provider Internal Medicine Endocrinology, Diabetes & Metabolism ==

== ENCOUNTER 2024-01-03 09:01 | Outpatient (REF) | payer BC, SELFPAY ==
[2024-01-03 10:36] LABS: MANUAL DIFF FLAG NO
[2024-01-03 10:44] LABS: Basophils Percent Auto 0.2 % (0-2); Hematocrit 39.6 % (37.0-47.0); Hemoglobin 13.4 g/dl (12.0-16.0); Imm Gran Abs Auto 0.02 X10*3/uL (0.00-0.03); Imm Gran Pct Auto 0.2 % (0.0-0.4); Lymphocytes Absolute Auto 2.3 X10*3/uL (1.2-4.9); Lymphocytes Percent Auto 26.5 % (20-40); Mean Corpuscular HGB Conc 33.8 g/dl (31.0-35.0); Mean Corpuscular Hemoglobin 28.6 pg (27.0-33.0); Mean Corpuscular Volume 84.4 fL (80.0-98.0); Mean Platelet Volume 9.8 fL (9.4-12.3); Monocytes Absolute Auto 0.5 X10*3/uL (0.1-1.2); Monocytes Percent Auto 6.4 % (2-11); Neutrophils Absolute Auto 5.7 x10*3/uL (2.0-8.3); Neutrophils Percent Auto 66.7 % (45-73); Platelet Count 243 X10*3/uL (160-400); Red Blood Count 4.69 X10*6/uL (4.20-5.50); Red Cell Distribution Width 13.5 % (11.0-16.0); White Blood Count 8.5 X10*3/uL (4.8-10.8)
[2024-01-03 11:29] LABS: Alanine Aminotransferase 22 U/L (0-31); Albumin Level 4.2 g/dL (3.5-5.0); Alkaline Phosphatase 98 U/L (39-117); Anion Gap 10 (12-20); Aspartate Amino Transferase 22 U/L (5-31); Bilirubin Total 0.3 mg/dL (0.0-1.0); Blood Urea Nitrogen 14 mg/dL (9-16); Calcium 8.5 mg/dL (8.4-10.2); Carbon Dioxide 26 mmol/L (22-29); Chloride 109 mmol/L (96-108); Cholesterol 224 mg/dL (<200); Estimated Glomerular Filt Rate > 60; Glucose Fasting 93 mg/dL (60-99); HDL Cholesterol 49 mg/dL (>40); LDL Cholesterol Calculated 158 mg/dL (<100); Potassium 3.7 mmol/L (3.3-5.1); Sodium 141 mmol/L (135-145); Total Protein 7.5 g/dL (6.5-8.0); Triglycerides 87 mg/dL (<150)
[2024-01-03 11:34] LABS: Free T4 (Free Thyroxine) 0.66 ng/dL (0.71-1.85)
== END 2024-01-03 09:02 | disposition home or self-care (01) ==
LOC: HO.10HDL 09:01
PROVIDERS: Internal Medicine Endocrinology, Diabetes & Metabolism; Visit Provider Internal Medicine
DX: Z00.00 Encounter for general adult medical examination without abnormal findings (principal); E89.0 Postprocedural hypothyroidism
CPT/HCPCS: 36415; 80053; 80061; 84439; 84443; 85025

== ENCOUNTER 2024-12-12 08:13 | Outpatient (AMB) | payer BC, SELFPAY ==
--- NOTE | 2024-12-12 08:12 | A.OFFPC_ITS ---
Vital Signs 12/12/24 08:15 Height 5 ft 4 in Weight 226 lb BMI 38.8 BP 104/66 Blood Pressure Location Lt brachial Position Sitting Respiration 20 Pulse 79 Pulse Source Pulse Oximeter Temp 97.8 F Temp Source Oral Pulse Oximetry (%) 97 Oxygen Delivery Method Room Air Intake Visit Reasons: Annual PE Intake Note: Pt is here today for PE. Allergies No Known Allergies Allergy (Verified 12/12/24 08:16) Medication List - Last Reconciled 12/12/24 by Bhavya Gill MD Synthroid (levothyroxine) 150 mcg PO DAILY NS Tobacco use date assessed: 12/12/24 Dental Screening Dental Screen Date: 12/12/24 Did you have a dental visit in the last 12 months?: Yes Did you have a dental problem in the last 6 months where you did not have access to dental care?: No Was dental information given to patient?: Patient has dentist HPI Annual PE HPI Details Pt presents for PE. [facility] Medical History (Updated 12/12/24 @ 15:55 by Bhavya Gill MD) Postoperative hypothyroidism Thyroid eye disease Hematuria Annual physical exam Normal Pap smear Vitamin D deficiency Exophthalmos Graves' disease Anxiety and depression Nephrolithiasis Abnormal mammogram of left breast Surgical History History of thyroid surgery No history of previous surgery Family History Father Family history of diabetes mellitus Mother Depression Family history of diabetes mellitus Brother Diabetes mellitus Other Mental health disorder Social History Housing: House Alcohol intake: current Alcohol intake frequency: holidays/special occasions only Patient Tobacco Use Status: Never used Tobacco e-Cigarette/Vaping Use: Never Used service: No Current occupational status: employed Cognitive needs: No Hearing needs: No Vision needs: Yes Questionnaire PHQ-9 Over the last 2 weeks, how often have you been bothered by any of the following problems? 1. Little interest or pleasure in doing things: not at all 2. Feeling down, depressed, or hopeless: not at all 3. Trouble falling or staying asleep, or sleeping too much: nearly every day 4. Feeling tired or having little energy: more than half the days 5. Poor appetite or overeating: not at all 6. Feeling bad about yourself - or that you are a failure or have let yourself or your family down: not at all 7. Trouble concentrating on things, such as reading the newspaper or watching t elevision: not at all 8. Moving or speaking so slowly that other people could have noticed. Or the opposite - being so fidgety or restless that you have been moving around a lot more than usual: not at all 9. Thoughts that you would be better off or of hurting yourself in some way: not at all Total score: 5 Depression Screening Interpretation: Negative Depression Screening Done: Yes 24484 - PHQ-9 Billing: Yes Source: Developed by Drs. Naldo Lackey, Sakshi Mayer, Kurtis Muniz and colleagues, with an educational butch from [employer]. Thrive Questionnaire Date Thrive assessed: 12/12/24 I am a: Patient What is your living situation today?: I have a steady place to live Within the past 12 months, did the food you bought not last and you didn't have the money to get more?: Never true Within the past 12 months, did you worry whether your food would run out before you got money to buy more?: Never true Do you have trouble paying for medicines?: No Do you have trouble getting transportation to medical appointments?: No Do you have trouble paying your heating and electricity bill?: No Do you have trouble taking care of your child, family member or friend?: No Do you have trouble with day-to-day activities such as bathing, preparing meals, shopping, managing finances, etc.?: No Are you currently unemployed and looking for a job?: No Are you interested in more education?: No THRIVE Score: 0 AUDIT C Alcohol Use Questionnaire (AUDIT-C) 1. How often do you have a drink containing alcohol?: Monthly or less 2. How many drinks containing alcohol do you have on a typical day when you are drinking?: 1 or 2 3. How often do you have six or more drinks on one occasion?: Never Total Score: 1 FRANCY-7 AMB Questionnaire FRANCY-7 Date FRANCY - 7 assessed: 12/12/24 Feeling nervous, anxious, or on edge: 0 = Not at all Not being able to stop or control worryin = Not at all Worrying too much about different things: 0 = Not at all Trouble relaxin = Not at all Being so restless that it is hard to sit still: 0 = Not at all Becoming easily annoyed or irritable: 0 = Not at all Feeling afraid as if something awful might happen: 0 = Not at all Total FRANCY-7 score (0-4 normal; 5-9 mild; 10-14 moderate; 15-21 severe): 0 Source: Developed by Drs. Naldo Lackey, Sakshi Mayer, Kurtis Muniz and colleagues, with an educational butch from [employer]. FRANCY-7 Assessment Billing FRANCY-7 Assessment Tool: FRANCY-7 Assessment 17570 Review of Systems Const All systems reviewed & are unremarkable except as noted in HPI and below Eyes Reports no additional complaints ENT Reports no additional complaints Card Reports no additional complaints Resp Reports no additional complaints GI Reports no additional complaints Reports no additional complaints Physical exam (Primary Care) Vital Signs: Last Vital Signs Temp 97.8 F 12/12/24 08:15 Pulse 79 12/12/24 08:15 Resp 20 12/12/24 08:15 BP 104/66 12/12/24 08:15 Pulse Ox 97 12/12/24 08:15 Oxygen Delivery Method Room Air 12/12/24 08:15 BMI result Body Mass Index 38.8 Tobacco/Smoking Status: Tobacco use Status Tobacco use date assessed 12/12/24 12/12/24 08:19 Patient Tobacco Use Status Never used Tobacco 12/12/24 08:12 e-Cigarette/Vaping Use Never Used 12/12/24 08:12 PHQ-9: PHQ-9 Score PHQ-9: Total score 5 12/12/24 08:35 Depression Screening Interpretation: Negative Thrive Assessment: Date of Thrive Assessment Date Thrive assessed 12/12/24 12/12/24 08:19 Const General: no acute distress HENMT Head: Yes normal to inspection Ears: hearing grossly normal bilaterally Face and sinus: Yes normal facial exam Mouth: Normal oral and palatal mucosa present Eyes General: appearance normal, both eyes and all related structures Neck Neck: Yes no lymphadenopathy and Yes supple Resp Effort & Inspection: normal respiratory effort Auscultation: clear to auscultation bilaterally Cardio Rhythm: regular rhythm Heart sounds: S1 normal heart sound present and S2 normal heart sound present GI Inspection: Yes normal to inspection Palpation (GI): Soft to palpation Percussion: Yes normal to percussion Auscultation: normal bowel sounds Coding Level of Care Code Est Pt Prev Care 40-64y(09345) Diagnoses Postoperative hypothyroidism E89.0 Annual physical exam Z00.00 Additional Codes FRANCY-7 Assessment Billing - FRANCY-7 Assessment Tool: FRANCY-7 Assessment 12580 ([id number]) PHQ-9 - 22483 - PHQ-9 Billing: Yes ([id number]) Assessment & Plan Assessment & Plan (1) Postoperative hypothyroidism: Code(s): E89.0 - Postprocedural hypothyroidism Category: Medical Plan: Continue Synthroid patient will return for blood work including TSH (2) Annual physical exam: Comment: Negative Cologuard October 2023 Code(s): Z00.00 - Encounter for general adult medical examination without abnormal findings Category: Medical Plan: Well-balanced diet regular physical activity weight loss discussed with the patient. 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 Orders: Orders Comprehensive [place]. Panel Fast Today E89.0 - Postprocedural hypothyroidism, Z00.00 - Encounter for general adult medical examination without abnormal findings Complete Blood Count Auto Diff Today E89.0 - Postprocedural hypothyroidism, Z00.00 - Encounter for general adult medical examination without abnormal findings Vitamin D 25-OH Total Today E89.0 - Postprocedural hypothyroidism, Z00.00 - Encounter for general adult medical examination without abnormal findings TSH reflex Free T4 1 Year E89.0 - Postprocedural hypothyroidism, Z00.00 - Encounter for general adult medical examination without abnormal findings Lipid Panel 1 Year E89.0 - Postprocedural hypothyroidism, Z00.00 - Encounter for general adult medical examination without abnormal findings TSH reflex Free T4 Today E89.0 - Postprocedural hypothyroidism, Z00.00 - Encounter for general adult medical examination without abnormal findings Lipid Panel Today E89.0 - Postprocedural hypothyroidism, Z00.00 - Encounter for general adult medical examination without abnormal findings Comprehensive [place]. Panel Fast 1 Year E89.0 - Postprocedural hypothyroidism, Z00.00 - Encounter for general adult medical examination without abnormal findings Complete Blood Count Auto Diff 1 Year E89.0 - Postprocedural hypothyroidism, Z00.00 - Encounter for general adult medical examination without abnormal findings UA CC w/rflx Micro + Cult Today E89.0 - Postprocedural hypothyroidism, Z00.00 - Encounter for general adult medical examination without abnormal findings Medications: Refilled Synthroid (levothyroxine) 150 mcg PO DAILY 90 tabs 3RF NS
[2024-12-12 08:15] VITALS: BP 104/66; PULSE 79; RESP 20; TEMP 36.6; O2SAT 97; BMI 38.8
== END 2024-12-12 09:49 | disposition home or self-care (01) ==
LOC: HO.HMCC 08:13
PROVIDERS: PCP Internal Medicine; Visit Provider Internal Medicine
DX: E89.0 Postprocedural hypothyroidism (principal); Z00.00 Encounter for general adult medical examination without abnormal findings

== ENCOUNTER → 2024-12-12 08:13 | Outpatient (BNVA) | payer BC, SELFPAY | PROVIDERS: PCP Internal Medicine; Visit Provider Internal Medicine | DX: Z00.00 Encounter for general adult medical examination without abnormal findings (principal); E89.0 Postprocedural hypothyroidism; Z79.899 Other long term (current) drug therapy | CPT/HCPCS: 96127 ==